=== PATIENT | male | born 1990 | race Two or more races ===

== ENCOUNTER 2024-10-28 17:14 | Emergency (ER) | payer OTHER ==
[~2024-10-28] VITALS: Ht 177.8 cm; Wt 90.0 kg
[2024-10-28 17:17] VITALS: O2SAT 99
[2024-10-28] MEDS: KETOROLAC 15MG/ML VIAL IM ONE (19:06)
[2024-10-28] MEDS: ACETAMINOPHEN 325MG TABLET PO ONE (19:07)
[2024-10-28] MEDS: LIDOCAINE 5% PATCH TOP ONE (19:07)
[2024-10-28 20:53] LABS: TROPONIN I HIGH SENSITIVITY 9 ng/L (3.0-53)
[2024-10-28 22:06] VITALS: BP 118/75; PULSE 87; RESP 18; TEMP 36.5; O2SAT 99
== END 2024-10-28 22:20 | disposition home or self-care (01) ==
LOC: ER 17:14
DX: R07.89 Other chest pain (principal); R06.02 Shortness of breath; V89.2XXA Person injured in unspecified motor-vehicle accident, traffic, initial encounter; Y93.89 Activity, other specified; Y92.410 Unspecified street and highway as the place of occurrence of the external cause; Y99.8 Other external cause status
CPT/HCPCS: 99285; 71045; 84484; 36415; 71120; 73090; 73110; 93005; 96372; J1885